=== PATIENT | male | born 1950 | race Two or more races ===

== ENCOUNTER 2019-01-01 09:43 | Emergency (ER) | payer MEDICARE ==
[~2019-01-01] VITALS: Ht 177.8 cm
[2019-01-01] MEDS ORDERED: TAMSULOSIN HCL 0.4 MG CAPSULE PO ONE (10:00)
[2019-01-01] MEDS ORDERED: METF-446 PO (10:16)
[2019-01-01] MEDS ORDERED: ASPI81TA39 PO (10:16)
[2019-01-01] MEDS ORDERED: LINA290C PO (10:18)
[2019-01-01] MEDS ORDERED: TAMS-1 PO (10:18)
[2019-01-01] MEDS ORDERED: LOSA25TA44 PO (10:18)
[2019-01-01] MEDS ORDERED: SODIUM CHLORIDE 0.9% 500 ML IV ONE (10:45)
[2019-01-01 10:50] LABS: GLUCOSE,POINT OF CARE 281 MG/DL (70-110)
[2019-01-01 10:56] LABS: BASOPHILS % (AUTO) 0.6 % (0.0-2.0); EOSINOPHILS % (AUTO) 0.5 % (1.0-6.0); HEMATOCRIT 48.6 % (41-53); HEMOGLOBIN 16.1 g/dL (13.5-17.5); LYMPHOCYTES # (AUTO) 0.6 K/uL (1.0-4.8); LYMPHOCYTES % (AUTO) 6.9 % (22.0-44.0); MEAN CORPUSCULAR HEMOGLOBIN 29.9 pg (26.0-34.0); MEAN CORPUSCULAR HGB CONC 33.1 G/dL (31.0-37.0); MEAN CORPUSCULAR VOLUME 90 fL (80-100); MONOCYTES # (AUTO) 0.5 K/uL (0.1-1.0); MONOCYTES % (AUTO) 5.7 % (2.0-9.0); PLATELET COUNT (AUTO) 278 K/uL (150-450); RED BLOOD CELL COUNT(AUTO) 5.39 MIL/uL (4.50-5.90); RED CELL DISTRIBUTION WIDTH 14.7 % (11.5-14.5)
[2019-01-01 10:57] LABS: NEUTROPHILS % (AUTO) 86.3 % (40.0-70.0)
[2019-01-01 11:05] LABS: APPEARANCE,URINE CLEAR (CLEAR); BILIRUBIN,URINE NEGATIVE (NEGATIVE); GLUCOSE, URINE (UA) >=1000 mg/dL (NEGATIVE); KETONES,URINE NEGATIVE (NEGATIVE); LEUKOCYTE ESTERASE ,URINE NEGATIVE (NEGATIVE); NITRATE,URINE POSITIVE (NEGATIVE); OCCULT BLOOD,URINE NEGATIVE (NEGATIVE); PROTEIN,URINE NEGATIVE (NEGATIVE)
[2019-01-01 11:09] LABS: ANION GAP 9 mmol/L (8-16); CALCIUM, TOTAL 8.3 mg/dL (8.8-10.5); CARBON DIOXIDE 24 mmol/L (22-29); CHLORIDE 101 mmol/L (98-107); CREATININE 0.76 mg/dL (0.60-1.30); GLOMERULAR FILTR. RATE CALC > 60 mL/min (>60); GLUCOSE,RANDOM 265 mg/dL (70-110); POTASSIUM 3.9 mmol/L (3.5-5.1); SODIUM SERUM 134 mmol/L (136-145); UREA NITROGEN, BLOOD 15 mg/dL (7-18)
[2019-01-01 11:16] LABS: ALANINE AMINOTRANSFERASE 25 U/L (12-78); ALBUMIN 3.5 g/dL (3.4-5.0); ALKALINE PHOSPHATASE 88 U/L (46-116); ASPARTATE AMINOTRANSFERASE 11 U/L (15-37); BILIRUBIN,TOTAL 0.4 mg/dL (0.1-1.0); TOTAL PROTEIN, SERUM 6.6 g/dL (6.4-8.2)
[2019-01-01 11:19] LABS: BACTERIA,URINE None Seen /HPF (None Seen); RBC,URINE 0-2 /HPF (0-2); SQUAMOUS EPITHELIAL CELL,UR Few /LPF (None Seen); WBC,URINE None Seen /HPF (0-5)
[2019-01-01 14:00] VITALS: BP 135/75
== END 2019-01-01 14:14 | disposition home or self-care (01) ==
LOC: EMS 09:45
DX: R33.9 Retention of urine, unspecified (principal); R31.9 Hematuria, unspecified; R39.11 Hesitancy of micturition; N39.43 Post-void dribbling; E11.9 Type 2 diabetes mellitus without complications; I10 Essential (primary) hypertension; Z79.899 Other long term (current) drug therapy; Z79.82 Long term (current) use of aspirin; Z79.84 Long term (current) use of oral hypoglycemic drugs
CPT/HCPCS: 36415; 51702; 80053; 81001; 82962; 85025; 99284; J7040

== ENCOUNTER 2019-01-02 04:36 | Emergency (ER) | payer MEDICARE ==
[~2019-01-02] VITALS: Ht 172.7 cm; Wt 81.8 kg
[~2019-01-02 04:36] MED LIST: ASPI81TA39 PO; LINA290C PO; LOSA25TA44 PO; METF-446 PO; TAMS-1 PO
[2019-01-02 06:42] LABS: APPEARANCE,URINE CLOUDY (CLEAR); BILIRUBIN,URINE NEGATIVE (NEGATIVE); GLUCOSE, URINE (UA) >=1000 mg/dL (NEGATIVE); KETONES,URINE TRACE mg/dL (NEGATIVE); LEUKOCYTE ESTERASE ,URINE SMALL (NEGATIVE); NITRATE,URINE NEGATIVE (NEGATIVE); OCCULT BLOOD,URINE LARGE (NEGATIVE); PROTEIN,URINE SEE CONFIRM (NEGATIVE)
[2019-01-02 06:48] LABS: SULFOSALICYLIC ACID,URINE 3+ (Negative)
[2019-01-02 06:49] VITALS: BP 119/74
[2019-01-02 06:49] LABS: BACTERIA,URINE Moderate /HPF (None Seen); RBC,URINE >100 /HPF (0-2)
== END 2019-01-02 07:15 | disposition home or self-care (01) ==
LOC: EMS 04:36
DX: T83.018A Breakdown (mechanical) of other urinary catheter, initial encounter (principal); R33.9 Retention of urine, unspecified; E11.9 Type 2 diabetes mellitus without complications; I10 Essential (primary) hypertension; Z79.82 Long term (current) use of aspirin; Z79.84 Long term (current) use of oral hypoglycemic drugs; Y84.6 Urinary catheterization as the cause of abnormal reaction of the patient, or of later complication, without mention of misadventure at the time of the procedure
CPT/HCPCS: 51702; 87086

== ENCOUNTER 2019-04-16 14:31 | Emergency (ER) | payer MEDICARE ==
[~2019-04-16] VITALS: Ht 172.7 cm; Wt 84.1 kg
[2019-04-16] MEDS ORDERED: LEVO25TA9 PO (14:52)
[2019-04-16] MEDS ORDERED: SILD20TA2 PO (14:52)
[2019-04-16] MEDS ORDERED: ATOR20TA86 PO (14:52)
[2019-04-16] MEDS ORDERED: CHOL100018 PO (14:52)
[2019-04-16 14:57] LABS: GLUCOSE,POINT OF CARE 331 MG/DL (70-110)
[2019-04-16] MEDS ORDERED: ACETAMINOPHEN 500 MG TABLET PO ONE (15:15)
[2019-04-16] MEDS ORDERED: ValACYclovir HCL 500 MG TABLET PO ONE (15:15)
[2019-04-16 15:53] VITALS: BP 121/77
== END 2019-04-16 15:53 | disposition home or self-care (01) ==
LOC: EMS 14:33
DX: B02.9 Zoster without complications (principal); E11.9 Type 2 diabetes mellitus without complications; I10 Essential (primary) hypertension; Z79.82 Long term (current) use of aspirin; Z79.84 Long term (current) use of oral hypoglycemic drugs

== ENCOUNTER 2020-09-04 08:18 | Emergency (ER) | payer MEDICARE ==
[~2020-09-04] VITALS: Ht 172.7 cm; Wt 86.4 kg
[~2020-09-04 08:18] MED LIST changes: +ATOR20TA86 PO; +CHOL100044 PO; +LEVO25TA9 PO; +LOSA25TA41 PO; -LOSA25TA44 PO; +SILD20TA2 PO
[2020-09-04 08:41] LABS: GLUCOSE,POINT OF CARE 282 MG/DL (70-110)
[2020-09-04 09:42] LABS: BASOPHILS % (AUTO) 0.8 % (0.0-2.0); EOSINOPHILS % (AUTO) 0.5 % (1.0-6.0); HEMATOCRIT 47.7 % (41-53); HEMOGLOBIN 15.6 g/dL (13.5-17.5); LYMPHOCYTES # (AUTO) 0.5 K/uL (1.0-4.8); LYMPHOCYTES % (AUTO) 5.9 % (22.0-44.0); MEAN CORPUSCULAR HEMOGLOBIN 30.2 pg (26.0-34.0); MEAN CORPUSCULAR HGB CONC 32.6 G/dL (31.0-37.0); MEAN CORPUSCULAR VOLUME 92 fL (80-100); MONOCYTES # (AUTO) 0.3 K/uL (0.1-1.0); NEUTROPHILS # (AUTO) 7.7 K/uL (1.8-7.7); PLATELET COUNT (AUTO) 227 K/uL (150-450); RED BLOOD CELL COUNT(AUTO) 5.16 MIL/uL (4.50-5.90); RED CELL DISTRIBUTION WIDTH 14.3 % (11.5-14.5)
[2020-09-04 09:43] LABS: NEUTROPHILS % (AUTO) 89.8 % (40.0-70.0)
[2020-09-04 09:54] LABS: ANION GAP 8 mmol/L (8-16); CALCIUM, TOTAL 9.2 mg/dL (8.8-10.5); CARBON DIOXIDE 26 mmol/L (22-29); CHLORIDE 103 mmol/L (98-107); CREATININE 0.92 mg/dL (0.60-1.30); GLOMERULAR FILTR. RATE CALC > 60 mL/min (>60); GLUCOSE,RANDOM 295 mg/dL (70-110); POTASSIUM 5.7 mmol/L (3.5-5.1); SODIUM SERUM 137 mmol/L (136-145); UREA NITROGEN, BLOOD 16 mg/dL (7-18)
[2020-09-04 09:57] LABS: BILIRUBIN,URINE NEGATIVE (NEGATIVE); GLUCOSE, URINE (UA) >=1000 mg/dL (NEGATIVE); KETONES,URINE TRACE mg/dL (NEGATIVE); LEUKOCYTE ESTERASE ,URINE NEGATIVE (NEGATIVE); NITRATE,URINE NEGATIVE (NEGATIVE); OCCULT BLOOD,URINE LARGE (NEGATIVE); PROTEIN,URINE NEGATIVE (NEGATIVE); UROBILINOGEN,URINE 0.2 mg/dL (<=1.0)
[2020-09-04 10:01] LABS: ALANINE AMINOTRANSFERASE 27 U/L (12-78); ALBUMIN 3.8 g/dL (3.4-5.0); ALKALINE PHOSPHATASE 98 U/L (46-116); ASPARTATE AMINOTRANSFERASE 12 U/L (15-37); BILIRUBIN,TOTAL 0.3 mg/dL (0.1-1.0); TOTAL PROTEIN, SERUM 7.2 g/dL (6.4-8.2)
[2020-09-04 10:07] LABS: APPEARANCE,URINE HAZY (CLEAR)
[2020-09-04 10:08] LABS: BACTERIA,URINE None Seen /HPF (None Seen); RBC,URINE >100 /HPF (0-2); WBC,URINE None Seen /HPF (0-5)
[2020-09-04] MEDS ORDERED: SODIUM POLYSTYRENE SULFONATE 15 GM/60 ML SUSPENSION BOTTLE PO ONE (10:45)
[2020-09-04 12:45] VITALS: BP 125/78
== END 2020-09-04 13:44 | disposition home or self-care (01) ==
LOC: EMS 08:33
DX: R33.9 Retention of urine, unspecified (principal); E11.65 Type 2 diabetes mellitus with hyperglycemia; E87.5 Hyperkalemia; I10 Essential (primary) hypertension; Z90.49 Acquired absence of other specified parts of digestive tract; Z79.84 Long term (current) use of oral hypoglycemic drugs; Z79.899 Other long term (current) drug therapy
CPT/HCPCS: 51702; 80053; 81001; 82962; 85025; 99285